=== PATIENT | female | born 2000 | race Caucasian/White ===

== ENCOUNTER 2021-11-28 12:32 | Emergency (ER) | payer SELFPAY ==
[2021-11-28 13:08] LABS: Urine Blood 1+ (Negative); Urine Glucose Negative (Negative); Urine Protein Negative (Negative); Urine Specific Gravity 1.025 (1.005-1.030); Urine pH 5.5 (5.0-7.0)
[2021-11-28 13:16] LABS: Hematocrit 38.2 % (36.0-45.0); Lymphocytes % 26.4 % (15.3-44.8); MCV 87.2 fL (80-100); MPV 8.6 fL (7.6-11.3); RBC Red Blood Cell Count 4.38 M/uL (3.86-4.86)
[2021-11-28 13:23] LABS: Urine Specific Gravity/Preg 1.025 (1.005-1.030)
[2021-11-28 13:30] LABS: Potassium 3.4 mmol/L (3.5-5.1)
--- NOTE | 2021-11-28 14:27 | RAD REPORT ---
EXAM DESCRIPTION: US - Transvaginal OB - 11/28/2021 2:16 pm CLINICAL HISTORY: RLQ abdomen pain COMPARISON: No comparisons FINDINGS: Normal shaped gestational sac is seen in the fundal portion the endometrial cavity. Yolk s ac and pole are identifiable. heart rate is 124 BPM. Gestational sac crown-rump length an d yolk sac measurements correspond to a 6 week 1 day age. Calculated TY is 07/23/2022. Uterine size is normal. No myometrial mass. No abnormal blood or fluid in the endometrial cavity or c ervix. Minimal amount physiologic quantity fluid present in the cul de sac. Both ovaries are identified and show normal blood flow in the stroma. No adnexal abnormality. IMPRESSION: Single 6 week 1 day IUP with normal heart rate. Calculated TY is 07/23/2022.
--- NOTE | 2021-11-28 15:29 | EDPHYS ---
Physician Documentation [facility] Name: Christi Shirley Age: 20 yrs Sex: Female : 2000 Arrival Date: 11/28/2021 Time: 12:34 Bed 10 Private MD: ED Physician Jewels Trent HPI: 11/28 13:00 This 20 yrs old Female presents to ER via Ambulatory with complaints of Abdominal Pain, cp Shoulder Pain, Leg Pain. 13:00 The patient presents with abdominal pain right lower quadrant. cp 13:00 Onset: The symptoms/episode began/occurred 2 week(s) ago. The symptoms do not radiate. cp Associated signs and symptoms: Pertinent positives: intermittent right shoulder pain and radiating pain to right leg, Pertinent negatives: anorexia, constipation, dysuria, fever, vaginal discharge. 13:00 The symptoms are described as intermittent. Severity of pain: in the emergency cp department the pain is unchanged despite home interventions. Patient is and reports being approximately 6 weeks after taking home test. 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 - Social history:: Smoking status: Patient denies any tobacco usage or history of. ROS: 13:05 Constitutional: Negative for body aches, chills, fever, poor PO intake. cp 13:05 Respiratory: Negative for cough, shortness of breath, wheezing. cp 13:05 Eyes: Negative for injury, pain, redness, and discharge. cp 13:05 ENT: Negative for drainage from ear(s), ear pain, sore throat, difficulty swallowing, difficulty handling secretions. 13:05 Cardiovascular: Negative for chest pain, palpitations. 13:05 Abdomen/GI: Positive for abdominal pain, of the right adnexal area, Negative for vomiting, diarrhea, constipation. 13:05 : Negative for urinary symptoms, flank pain, vaginal bleeding, vaginal discharge. 13:05 MS/extremity: Positive for intermittent pain to right shoulder and right leg. cp 13:05 Neuro: Negative for altered mental status, headache, weakness. 13:05 All other systems are negative. Exam: 13:10 Constitutional: The patient appears in no acute distress, alert, awake, comfortable, cp non-toxic, well developed, well nourished. 13:10 Head/Face: Normocephalic, atraumatic. cp 13:10 Eyes: Periorbital structures: appear normal, Conjunctiva: normal, no exudate, no injection, Sclera: no appreciated abnormality, Lids and lashes: appear normal, bilaterally. 13:10 ENT: External ear(s): are unremarkable, Nose: is normal, Mouth: Lips: moist, Oral mucosa: pink and intact, moist, Posterior pharynx: Airway: no evidence of obstruction, patent. 13:10 Chest/axilla: Inspection: normal. 13:10 Cardiovascular: Rate: normal, Rhythm: regular. 13:10 Respiratory: the patient does not display signs of respiratory distress, Respirations: normal, no use of accessory muscles, no retractions, labored breathing, is not present. 13:10 Abdomen/GI: Inspection: abdomen appears normal, Bowel sounds: active, all quadrants, Palpation: soft, in all quadrants, mild abdominal tenderness, in the right adnexal area, rebound tenderness, is not appreciated, voluntary guarding, is not appreciated, involuntary guarding, is not appreciated. 13:10 Back: CVA tenderness, is absent. 13:10 Neuro: Orientation: to person, place \T\ time. Mentation: is normal, Motor: moves all fours, strength is normal, Sensation: is normal. Vital Signs: 12:42 BP 130 / 73; Pulse 114; Resp 16 S; Temp 98.0(TE); Pulse Ox 100% on R/A; Weight 74.84 kg aa5 (R); Height 5 ft. 7 in. (170.18 cm) (R); Pain 6/10; 15:00 BP 124 / 74; Pulse 88; Resp 16; Pulse Ox 100% on R/A; Pain 0/10; hb 12:42 Body Mass Index 25.84 (74.84 kg, 170.18 cm) aa5 MDM: 14:18 Patient medically screened. cp 15:28 Data reviewed: vital signs, nurses notes, lab test result(s), radiologic studies, cp ultrasound. 15:28 Differential diagnosis: Ectopic , Ovarian Torsion, Pelvic Inflammatory cp Disease, Pyelonephritis, Tubal Ovarian Abcess, Ureterolithiasis, urinary tract infection. Counseling: I had a detailed discussion with the patient and/or guardian regarding: the historical points, exam findings, and any diagnostic results supporting the discharge/admit diagnosis, lab results, radiology results, the need for outpatient follow up, an OB/Gyne specialist, to return to the emergency department if symptoms worsen or persist or if there are any questions or concerns that arise at home. Response to treatment: the patient's symptoms have mildly improved after treatment, and as a result, I will discharge patient. 11/28 12:49 Order name: Abo/rh Typing; Complete Time: 14:10 11/28 12:49 Order name: Basic Metabolic Panel; Complete Time: 14:10 11/28 14:10 Interpretation: Normal except: K 3.4. 11/28 12:49 Order name: CBC with Diff; Complete Time: 14:10 11/28 12:49 Order name: Quantitative Hcg; Complete Time: 14:10 11/28 14:11 Interpretation: Abnormal: HCGQ [id number]. 11/28 13:08 Order name: Urine Dipstick-Ancillary; Complete Time: 14:10 EDMS 11/28 13:12 Order name: Urine --Ancillary (enter results); Complete Time: 14:10 eb 11/28 12:49 Order name: IV Saline Lock; Complete Time: 13:10 11/28 12:49 Order name: Labs collected and sent; Complete Time: 13:10 11/28 12:49 Order name: Urine Dipstick-Ancillary (obtain specimen); Complete Time: 13:10 11/28 12:49 Order name: Urine Test (obtain specimen); Complete Time: 13:10 11/28 12:49 Order name: US Transvaginal Ob; Complete Time: 14:29 11/28 14:29 Interpretation: Report reviewed. cp Administered Medications: 15:47 Drug: Potassium Effervescent Tablet 25 mEq Route: PO; hb Disposition Summary: 11/28/21 15:28 Discharge Ordered Location: Home cp Problem: new cp Symptoms: have improved cp Condition: Stable cp Diagnosis - Other specified related conditions, first trimester cp - Lower abdominal pain, unspecified cp Followup: cp - With: Private Physician - When: 1 week - Reason: Recheck today's complaints Discharge Instructions: - Discharge Summary Sheet cp - Abdominal Pain During cp - First Trimester of cp Forms: - Medication Reconciliation Form cp - Thank You Letter cp - Antibiotic Education cp - Prescription Opioid Use cp Signatures: Dispatcher [employer] Liseth Martínez RN RN aa5 Main Gonzalez PA PA cp Eileen Devine RN RN
--- NOTE | 2021-11-28 15:29 | ER ---
Nurse's Notes [facility] Name: Christi Shirley Age: 20 yrs Sex: Female : 2000 Arrival Date: 11/28/2021 Time: 12:34 Bed 10 Private MD: Diagnosis: Other specified related conditions, first trimester;Lower abdominal pain, unspecified Presentation: 11/28 12:42 Chief complaint: Patient states: RLQ pain and right shoulder pain that began aa5 approximately 2 weeks ago when pt found out she was . Pt reports being 6 weeks and 2 days. Pt denies vaginal bleeding. Coronavirus screen: At this time, the client does not indicate any symptoms associated with coronavirus-19. Ebola Screen: No symptoms or risks identified at this time. Initial Sepsis Screen: Does the patient meet any 2 criteria? No. Patient's initial sepsis screen is negative. Does the patient have a suspected source of infection? No. Patient's initial sepsis screen is negative. Risk Assessment: Do you want to hurt yourself or someone else? Patient reports no desire to harm self or others. Onset of symptoms was November 2021. 12:42 Acuity: CHUY 3 aa5 12:42 Method Of Arrival: Ambulatory aa5 Triage Assessment: 12:44 General: Appears comfortable, Behavior is calm, cooperative. Pain: Complains of pain in aa5 right lower quadrant Pain currently is 6 out of 10 on a pain scale. Neuro: Level of Consciousness is awake, alert, obeys commands, Oriented to person, place, time, situation. Respiratory: Airway is patent Respiratory effort is even, unlabored, Respiratory pattern is regular, symmetrical. Derm: Skin is pink, warm \T\ dry. 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 - Social history:: Smoking status: Patient denies any tobacco usage or history of. Screenin:00 Abuse screen: Denies threats or abuse. Denies injuries from another. Nutritional hb screening: No deficits noted. Tuberculosis screening: No symptoms or risk factors identified. Fall Risk None identified. Assessment: 15:00 General: Appears in no apparent distress. Behavior is calm, cooperative. hb 15:00 Neuro: Level of Consciousness is awake, alert, obeys commands, Oriented to person, hb place, time, situation. Cardiovascular: Patient's skin is warm and dry. Respiratory: Respiratory effort is even, unlabored, Respiratory pattern is regular, symmetrical. GI: No signs and/or symptoms were reported involving the gastrointestinal system. : No signs and/or symptoms were reported regarding the genitourinary system. EENT: No signs and/or symptoms were reported regarding the EENT system. Derm: Skin is pink, warm \T\ dry. Musculoskeletal: No signs and/or symptoms reported regarding the musculoskeletal system. Vital Signs: 12:42 BP 130 / 73; Pulse 114; Resp 16 S; Temp 98.0(TE); Pulse Ox 100% on R/A; Weight 74.84 kg aa5 (R); Height 5 ft. 7 in. (170.18 cm) (R); Pain 6/10; 15:00 BP 124 / 74; Pulse 88; Resp 16; Pulse Ox 100% on R/A; Pain 0/10; hb 12:42 Body Mass Index 25.84 (74.84 kg, 170.18 cm) aa5 ED Course: 12:34 Patient arrived in ED. as 12:35 Main Gonzalez PA is PHCP. cp 12:35 Jewels Trent MD is Attending Physician. cp 12:41 Arm band placed on. aa5 12:44 Triage completed. aa5 13:00 Initial lab(s) drawn, by id, sent to lab. Inserted saline lock: 20 gauge in left kj1 antecubital area, using aseptic technique. Blood collected. 14:18 US Transvaginal Ob In Process Unspecified. EDMS 15:00 Patient has correct armband on for positive identification. hb 15:19 Eileen Devine, RN is Primary Nurse. hb 15:48 No provider procedures requiring assistance completed. IV discontinued, intact, hb bleeding controlled, Pressure dressing applied. Administered Medications: 15:47 Drug: Potassium Effervescent Tablet 25 mEq Route: PO; hb Medication: 15:00 VIS not applicable for this client. hb Outcome: 15:28 Discharge ordered by . cp 15:48 Discharged to home ambulatory, with family. hb 15:48 Condition: stable 15:48 Discharge instructions given to patient, Instructed on discharge instructions, follow up and referral plans. medication usage, Demonstrated understanding of instructions, follow-up care, medications. 15:48 Patient left the ED. hb Signatures: Dispatcher [employer] Charlee Nicholson Audri, RN RN aa5 Main Gonzalez PA PA cp Baxter, Heather, RN RN Zoila Berumen [id number] Corrections: (The following items were deleted from the chart) 12:44 12:42 BP 130 / 73; Pulse 114bpm; Resp 16bpm; Spontaneous; Pulse Ox 100% RA; Temp 98.0F aa5 Temporal; 74.84 kg Reported; Height 5 ft. 7 in. Reported; BMI: 25.8; aa5 12:45 12:42 Chief complaint: Patient states: RLQ pain that began approximately 2 weeks ago aa5 when pt found out she was . Pt reports being 6 weeks and 2 days. Pt denies vaginal bleeding. aa5
[2021-11-28] MEDS ORDERED: POTASSIUM 25 MEQ EFFERV TAB ONE (15:46)
[2021-11-28 16:27] VITALS: TEMP 98; O2SAT 100
[2021-11-28 16:29] VITALS: BP 124/74
== END 2021-11-28 15:48 | disposition home or self-care (01) ==
LOC: ER 12:32
DX: O26.891 Other specified pregnancy related conditions, first trimester (principal); Z3A.01 Less than 8 weeks gestation of pregnancy
CPT/HCPCS: 36415; 76817; 80048; 81003; 81025; 84702; 85025; 86900; 86901; 99284